=== PATIENT | female | born 1960 | race African-American/Black ===

== ENCOUNTER 2023-02-16 14:45 | Outpatient (CLI) | payer OTHER | END 2023-02-16 14:46 | disposition home or self-care (01) | LOC: NAV RAD 14:45 | PROVIDERS: ATTEND Family Medicine | DX: M15.9 Polyosteoarthritis, unspecified (principal); M47.816 Spondylosis without myelopathy or radiculopathy, lumbar region | CPT/HCPCS: 72100 ==